=== PATIENT | male | born 1965 | race Caucasian/White ===

== ENCOUNTER 2024-01-25 08:03 | Emergency (ER) | payer OTHER, SELFPAY ==
--- NOTE | ~2024-01-25 | XR_ITS ---
XR knee RT min 4V 01/25/2024 08:37 Indication: Right knee pain after injury Procedure: 4 views right knee Comparison: No prior studies for comparison. Findings: No fracture, subluxation or dislocation. There is a joint effusion. No foreign bodies. Impression: 1: Small knee effusion. Reviewed, dictated and finalized at location B. Impression: 1: Small knee effusion.
[2024-01-25 08:18] VITALS: BP 134/90; PULSE 67; RESP 16; TEMP 36.3; O2SAT 100
--- NOTE | 2024-01-25 08:21 | ED.LOWEXIN ---
HPI - Extremity Injury (Lower) General Chief Complaint: Extremity Injury, Lower Stated Complaint: Knee Pain Time Seen by Provider: 01/25/24 08:24 Source: patient Mode of arrival: ambulatory Limitations: no limitations History of Present Illness HPI Narrative: Go is a 58-year-old male patient presenting to the clinic today with complaints of right-sided knee pain. He reports he fell 1 month ago and his pain is gradually getting worse. He is experiencing knee swelling and pain with full extension of the right knee. Related Data Allergies Allergy/AdvReac Type Severity Reaction Status Date / Time No Known Allergies Allergy Mild Verified 07/23/10 01:27 Review of Systems Review of Systems: Pertinent positives per HPI. Patient denies any fever, chills, rash, headache, visual changes, dizziness, cough, runny nose, sore throat, shortness of breath, chest pain, palpitations, nausea, vomiting, diarrhea, constipation, abdominal pain, or any urinary issues. PMFSH Comments At the time of my signature, I reviewed and agree with the nursing past medical, surgical, social, and family history. There is no relevant family history pertinent to the patient complaint. Exam Narrative: General: Well-developed, well nourished, in no apparent distress Head: Normocephalic, atraumatic. Cardio: Regular rate and rhythm, s1 and s2 normal, no murmur appreciated. Resp: Clear to auscultation bilaterally, no rhonchi, rales, wheezing or rubs. Musculoskeletal: No deformity, planter's wart to the midfoot of the left foot-no surrounding redness or swelling noted, tender to palpation over the anterior inferior knee, pain with full extension of the right knee, swelling noted to the right knee when compared to the left knee, grossly normal range of motion, muscle strength strong and equal, peripheral pulse strong, no cyanosis, normal gait and station Course Course Emergency Course: Portions of this record may have been created with voice recognition software. Level of Care: Express Care Visit Vital Signs Vital signs: Vital Signs Temperature 36.3 C L 01/25/24 08:18 Pulse Rate 67 01/25/24 08:18 Respiratory Rate 16 01/25/24 08:18 Blood Pressure 134/90 01/25/24 08:18 Pulse Oximetry 100 01/25/24 08:18 Temperature 36.3 C L 01/25/24 08:18 Pulse Rate 67 01/25/24 08:18 Respiratory Rate 16 01/25/24 08:18 Blood Pressure 134/90 01/25/24 08:18 Pulse Oximetry 100 01/25/24 08:18 Vital signs reviewed MDM - Extremity Injury (Lower) MDM Narrative Medical decision making narrative: At the time of visit patient is resting comfortably on the exam table. Patient appears to be nontoxic. Diagnostics: X-ray of the right knee was performed and shows no acute fracture or malalignment the does show a small knee joint effusion Plan: I suspect patient has knee pain with small knee joint effusion. Also concerned about a left planter's wart. Prescription for salicylic acid was sent to the pharmacy. Also sent in a Medrol Dosepak. Supportive measures were discussed with the patient and they voiced understanding discharge instructions and agrees to treatment plan. Return precautions reviewed Differential Diagnosis Differential diagnosis: Likely acute internal derangement of knee and other (Knee sprain, tibia fracture, femur fracture, contusion, soft tissue injury, tendon/ligament injury) Imaging Data Radiologist's impression: ITS Impressions Knee X-Ray 01/25/24 08:41 Impression: 1: Small knee effusion. Discharge Plan Discharge Clinical Impression: Plantar wart of left foot Acute knee pain Qualifiers: Laterality: right Qualified Code(s): M25.561 - Pain in right knee Effusion of knee Qualifiers: Laterality: right Qualified Code(s): M25.461 - Effusion, right knee Patient Disposition: Home, Self-Care Condition: Stable Instructions: Antibiotic Form, Plantar Wart (ED), Swollen Knee Joint
== END 2024-01-25 09:04 | disposition home or self-care (01) ==
PROVIDERS: Emergency Provider Nurse Practitioner Family
DX: B07.0 Plantar wart (principal); M25.561 Pain in right knee; M25.461 Effusion, right knee
CPT/HCPCS: 73564; 99213; G0463

== ENCOUNTER 2024-02-20 14:04 | Outpatient (CLI) | payer OTHER, SELFPAY ==
[2024-02-20 14:24] LABS: Hematocrit 47.9 % (42.0-52.0); Hemoglobin 16.4 g/dL (14.0-18.0); Mean Corpuscular HGB Conc 34.2 g/dl (32-36); Mean Corpuscular Hemoglobin 31.7 pg (26-34); Mean Corpuscular Volume 92.5 fl (80-100); Mean Platelet Volume 11.8 fl (7.4-10.4); Platelet Count Result 241 k/mm3 (150-375); Red Blood Count 5.18 M/mm3 (4.6-6.20); Red Cell Distribution Width 13.7 % (11.5-14.5); White Blood Count 5.7 K/mm3 (4.5-10.0)
[2024-02-20 14:40] LABS: Alanine Aminotransferase 43 U/L (6-50); Albumin Level 4.8 g/dL (3.5-5.1); Alkaline Phosphatase 61 U/L (38-126); Anion Gap 8 mmol/L (4-12); Aspartate Amino Transferase 33 U/L (17-59); Bilirubin,Total 0.7 mg/dL (0.2-1.3); Blood Urea Nitrogen 15 mg/dL (9-20); Calcium 9.3 mg/dL (8.4-10.2); Carbon Dioxide 30 mmol/L (22-30); Chloride 103 mmol/L (98-107); Cholesterol 175 mg/dL (0-200); Estimated Glomerular Filt Rate > 60; Glucose 95 mg/dL (65-110); HDL Direct 33 mg/dL; Potassium 4.1 mmol/L (3.4-5.0); Sodium 141 mmol/L (137-145); Triglycerides 158 mg/dL (<150)
[2024-02-20 14:51] LABS: LDL Cholesterol Direct 120 mg/dL
== END 2024-02-20 14:05 | disposition home or self-care (01) ==
LOC: ANHLAB 14:05
PROVIDERS: PCP Family Medicine; Visit Provider Family Medicine
DX: N40.0 Benign prostatic hyperplasia without lower urinary tract symptoms (principal); Z76.89 Persons encountering health services in other specified circumstances
CPT/HCPCS: 36415; 80053; 80061; 84153; 85027; G0103

== ENCOUNTER 2024-08-25 12:03 | Outpatient (CLI) | payer OTHER, SELFPAY ==
[2024-08-25 12:54] LABS: Hematocrit 48.1 % (42.0-52.0); Hemoglobin 16.1 g/dL (14.0-18.0); Mean Corpuscular HGB Conc 33.5 g/dl (32-36); Mean Corpuscular Hemoglobin 31.3 pg (26-34); Mean Corpuscular Volume 93.6 fl (80-100); Mean Platelet Volume 12.2 fl (7.4-10.4); Platelet Count Result 245 k/mm3 (150-375); Red Blood Count 5.14 M/mm3 (4.6-6.20); Red Cell Distribution Width 13.6 % (11.5-14.5)
[2024-08-25 13:15] LABS: Alanine Aminotransferase 47 U/L (6-50); Albumin Level 4.5 g/dL (3.5-5.1); Alkaline Phosphatase 58 U/L (38-126); Anion Gap 7 mmol/L (4-12); Aspartate Amino Transferase 31 U/L (17-59); Bilirubin,Total 0.7 mg/dL (0.2-1.3); Blood Urea Nitrogen 15 mg/dL (9-20); Calcium 9.1 mg/dL (8.4-10.2); Carbon Dioxide 29 mmol/L (22-30); Chloride 103 mmol/L (98-107); Estimated Glomerular Filt Rate > 60; Glucose 93 mg/dL (65-110); Magnesium 2.2 mg/dL (1.6-2.3); Sodium 139 mmol/L (137-145)
[2024-08-25 13:29] LABS: Vitamin D 25 Hydroxy 44.7 ng/mL
[2024-08-25 13:42] LABS: Prostate Specific Antigen 4.8 ng/mL (< OR = 4.0)
== END 2024-08-25 12:04 | disposition home or self-care (01) ==
LOC: ANHLAB 12:06
PROVIDERS: PCP Family Medicine; Visit Provider Family Medicine
DX: Z12.5 Encounter for screening for malignant neoplasm of prostate (principal); R97.20 Elevated prostate specific antigen [PSA]; N40.0 Benign prostatic hyperplasia without lower urinary tract symptoms; E66.9 Obesity, unspecified; Z76.89 Persons encountering health services in other specified circumstances
CPT/HCPCS: 36415; 80053; 82306; 82607; 83735; 84153; 85027; G0103

== ENCOUNTER 2025-02-25 08:40 | Outpatient (CLI) | payer OTHER, SELFPAY ==
--- OUTSIDE RECORDS SUMMARY | 2025-02-25 08:47 | XMS_ITS | Patient Health Record ---
Author Organization [facility] Address [address] [place], [place] [id number] Care Team Providers Care Lens Gauger Name Role Phone Del Bond Unavailable Unavailable Reason For Referral No Information Medications Medication SIG (Take, Route, Frequency, Duration) Notes Start Date End Date Status Medrol Dosepak ORAL Medrol DosepakOr iginal MedicationMedrol Dosepak *Reorder from [employer] for eRx and Interaction Alerts* 05/01/2016 Active Plan Of Treatment No Information Insurance Providers Payer Name Payer Address Payer Phone Subscriber Number Group Number Insured Name Patient Relationship to Insured Coverage Start Date Coverage End Date [facility] [address] [address] [place] [id number] MARLON PALMA Self - patient is the insured
--- OUTSIDE RECORDS SUMMARY | 2025-02-25 08:47 | XMS_ITS | Referral Summary ---
Author Organization [facility] [address] Address [address] [place] [address] Care Team Providers Care Audience Coordinator Name Role Phone Varun Del Nova DO Primary Care Provider Allergies No known active allergies Medications multivitamin with iron tablet Take 1 tablet by mouth daily Active cholecalciferol (VITAMIN D-3) 5,000 unit capsule Take 5,000 Units by mouth daily Active Active Problems Problem Noted Date Diagnosed Date Vitamin D deficiency 12/27/2013 Overview (11/15/2016): Vitamin D deficiency Social History Tobacco Use Types Packs/Day Years Used Date Smoking Tobacco: Every Day Smokeless Tobacco: Never Alcohol Use Standard Drinks/Week Comments Yes 0 (1 standard drink = 0.6 oz pur e alcohol) Sex and Gender Information Value Date Recorded Sex Assigned at Not on file Legal 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 Gender Identity Not on file Sexual Orientation Not on file Last Filed Vital Signs Vital Sign Reading Time Taken Comments Blood Pressure - - Pulse - - Temperature - - Respiratory Rate 17 08/01/2021 1:55 PM IMMIGRATION OFFICER Oxygen Saturation - - Inhaled Oxygen Concentration - - Weight 98.9 kg (218 lb) 08/01/2021 1:55 PM IMMIGRATION OFFICER Height 180.3 cm (5' 11) 08/01/2021 1:55 PM IMMIGRATION OFFICER Body Mass Index 30.4 08/01/2021 1:55 PM IMMIGRATION OFFICER Plan of Treatment Not on file Insurance [facility] CHOICE PLUS Care Teams Audience Coordinator Relationship Specialty Start Date End Date Del Bond DO PCP - General Family Practice 07/26/21
--- OUTSIDE RECORDS SUMMARY | 2025-02-25 08:47 | XMS_ITS | Clinical Summary ---
Author Organization [facility] [address] Address [address] [place] [address] Care Team Providers Care Director Child Abuse Therapy Name Role Phone Del Bond DO Primary Care Provider Allergies No known active allergies Medications multivitamin with iron tablet Take 1 tablet by mouth daily Active cholecalciferol (VITAMIN D-3) 5,000 unit capsule Take 5,000 Units by mouth daily Active Active Problems Problem Noted Date Diagnosed Date Vitamin D deficiency 12/27/2013 Overview (11/15/2016): Vitamin D deficiency Surgical History Surgery Date Site/Laterality Comments HERNIA REPAIR 08/13/2015 - 08/12/2016 Medical History Medical History Date Comments Hx Other Medical 1988 vasectomy Hx Other Medical 1999 R kidney infarc tion; Laterality: right Tinnitus Family History Medical History Relation Name Comments Other Father Cancer-not sure what type; Cause of : Cancer-not sure what type No Known Problems Mother Relation Name Status Comments Father (Age 50) Mother Social History Tobacco Use Types Packs/Day Years Used Date Smoking Tobacco: Every Day Smokeless Tobacco: Never Alcohol Use Standard Drinks/Week Comments Yes 0 (1 standard drink = 0.6 oz pur e alcohol) Sex and Gender Information Value Date Recorded Sex Assigned at Not on file 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 CHOICE PLUS Care Teams Director Child Abuse Therapy Relationship Specialty Start Date End Date Del Bond DO PCP - General Family Practice 07/26/21
--- OUTSIDE RECORDS SUMMARY | 2025-02-25 08:47 | XMS_ITS | Clinical Summary ---
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/10/2013 Overview (07/09/2019): Onset: 08/13/1999; Laterality: Right Resolved Problems Problem Noted Date Diagnosed Date Resolved Date Screening for prostate cancer 07/28/2019 04/23/2020 Screening for lipid disorders 07/28/2019 04/23/2020 Encounter for preventive health examination 03/10/2013 04/23/2020 Immunizations Immunization Administration Dates Next Due PFIZER COVID-19 (ORIGINAL FO RMULATION, PURPLE CAP) mRNA, LNP-S, PF, 30 MCG/0.3 ML DOSE 11/22/2020 Shingrix 07/02/2021,03/29/2021 Family History Medical History Relation Comments stomach cancer Father Relation Status Comments Father Social History Tobacco Use Types Packs/Day Years Used Date Smoking Tobacco: Every Day Smokeless Tobacco: Never Comments:6 packs/week Alcohol Use Standard Drinks/Week Comments Yes 0 (1 standard drink = 0.6 oz pur e alcohol) social PHQ-2 Answer Date Recorded Patient Health Questionnaire-2 Score 0 01/31/2023 Sex and Gender Information Value Date Recorded Sex Assigned at Not on file Legal Sex Male 7:03 PM CDT Gender Identity Not on file Sexual Orientation Not on file Occupation Industry Job Start Date Job End Date [employer] Not on file Not on file Not on file Last Filed Vital Signs Vital Sign Reading Time Taken Comments Blood Pressure 116/82 01/31/2023 1:37 PM CDT Pulse 84 01/31/2023 1:37 PM CDT Temperature - - Respiratory Rate - - Oxygen Saturation - - Inhaled Oxygen Concentration - - Weight 104.3 kg (230 lb) 01/31/2023 1:37 PM CDT Height 176.5 cm (5' 9.5) 01/31/2023 1:37 PM CDT Body Mass Index 33.48 01/31/2023 1:37 PM CDT Plan of Treatment Health Maintenance Due Date Last Done Comments Colorectal Cancer Screening Colonoscopy (10 Years) 1964 Hepatitis C 1982 DTaP, Tdap and Td Vaccines ( 1 - Tdap) 10/19/1983 Pneumococcal Vaccine: 50+ Years (1 of 2 - PCV) 10/19/1983 Annual Physical 02/01/2024 01/31/2023, 07/20/2021, 07/28/2019 COVID-19 Vaccine (4 - 2023-2 5 season) 2024 07/02/2021, 11/22/2020, 10/25/2020 RSV Immunization or 60+ Years (1 - 1-dose 75+ series) 10/19/2039 Colorectal Cancer Screening FIT-DNA (3 Years) Discontinued 02/04/2020 Zoster Vaccines Completed 07/02/2021, 03/29/2021 Meningococcal B Vaccine Aged Out No l onger eligible based on patient's age to complete this topic Meningococcal Vaccine Aged Out No jarad edgar eligible based on patient's age to complete this topic RSV Immunizations Under 20 Months Aged Out No longer eligible based on patient's age to complete this topic Procedures Procedure Name Priority Date/Time Associated Diagnosis Comments COLOGUARD (SCAN ORDER) Routine 02/04/2020 from Last 3 Months or Most Recently Relevant to Health Maintenance Results * COLOGUARD (SCAN) (02/04/2020) Stool specimen (specimen) us Documents Scanned SCANNING Final Result [facility] from Last 3 Months or Most Recently Relevant to Health Maintenance Insurance [facility] Care Teams Maintenance Planning Clerk Relationship Specialty Start Date End Date Del Bond DO PCP - General FAMILY PRACTICE 06/24/19
[2025-02-25 09:17] LABS: Hematocrit 46.0 % (42.0-52.0); Hemoglobin 15.7 g/dL (14.0-18.0); Immature Granulocyte Percent A 0.2 % (0-0.5); Lymphocytes Absolute Auto 1.05 K/mm3 (0.9-3.2); Mean Corpuscular HGB Conc 34.1 g/dl (32-36); Mean Corpuscular Hemoglobin 31.3 pg (26-34); Mean Corpuscular Volume 91.8 fl (80-100); Nucleated Red Blood Cells Absolute Auto 0.000 K/mm3 (0.0-0.012); Nucleated Red Blood Cells Perc 0.0 % (0.0-0.2); Platelet Count Result 226 k/mm3 (150-375); Red Blood Count 5.01 M/mm3 (4.6-6.20); White Blood Count 5.0 K/mm3 (4.5-10.0)
[2025-02-25 09:48] LABS: Alanine Aminotransferase 34 U/L (6-50); Albumin Level 4.4 g/dL (3.5-5.1); Alkaline Phosphatase 53 U/L (38-126); Anion Gap 7 mmol/L (4-12); Aspartate Amino Transferase 34 U/L (17-59); Bilirubin,Total 0.5 mg/dL (0.2-1.3); Blood Urea Nitrogen 23 mg/dL (9-20); Calcium 9.0 mg/dL (8.4-10.2); Carbon Dioxide 25 mmol/L (22-30); Chloride 106 mmol/L (98-107); Glucose 86 mg/dL (65-110); Potassium 4.1 mmol/L (3.4-5.0); Sodium 138 mmol/L (137-145); Total Protein 7.7 g/dL (6.3-8.2)
[2025-02-25 10:06] LABS: Estimated Glomerular Filt Rate 49
[2025-02-25 10:24] LABS: Prostate Specific Antigen 4.5 ng/mL (< OR = 4.0); Thyroid Stimulating Hormone 2.690 uIU/mL (0.465-4.680)
[2025-02-28 03:07] LABS: Free Testosterone (Direct) 6.7 pg/mL (6.6-18.1)
== END 2025-02-25 08:41 | disposition home or self-care (01) ==
LOC: ANHLAB 08:40
PROVIDERS: PCP Family Medicine; Visit Provider Family Medicine
DX: N40.0 Benign prostatic hyperplasia without lower urinary tract symptoms (principal); E66.811 Obesity, class 1; Z12.5 Encounter for screening for malignant neoplasm of prostate; Z00.00 Encounter for general adult medical examination without abnormal findings; R53.83 Other fatigue
CPT/HCPCS: 36415; 80053; 84153; 84402; 84443; 85025; G0103